=== PATIENT | female | born 1985 | race Caucasian/White ===

== ENCOUNTER 2018-12-05 04:09 | Emergency (ER) | payer BC ==
[~2018-12-05] VITALS: Ht 162.6 cm; Wt 62.1 kg
--- NOTE | 2018-12-05 04:27 | NUR ---
Patient to ER bed 4 for evaluation. Side rails up.
--- NOTE | 2018-12-05 04:28 | NUR ---
SENG Zuñiga at bedside examining patient.
--- NOTE | 2018-12-05 04:30 | NUR ---
Patient arrived from home [id number] and able to verbalize her needs. Complaints of pelvic with pain or an 8/10 with burning upon urination and urgency urination. Has chill but no fever. Denies any chest pain, sob or n/v. Generalized mild aches throughout. Able to ambulate with out assistance. Patient states it might be a UTI and been taking medication at home since yesterday 12/04/18.
[2018-12-05] MEDS ORDERED: NITROFURANTOIN MONOHYD/M-CRYST 100 MG CAPSULE PO ONE (04:45)
--- NOTE | 2018-12-05 04:45 | NUR ---
Patient given written and verbal discharge instructions and verbalizes understanding. ER MD discussed with patient the results and treatment provided. Patient in stable condition. ID arm band removed. Rx of Macrobid given. Patient educated on pain management and to follow up with PMD. Pain Scale 0/10. Opportunity for questions provided and answered. Medication side effect fact sheet provided.
[2018-12-05 04:46] VITALS: BP_SYST 122
== END 2018-12-05 04:45 | disposition home or self-care (01) ==
LOC: SED 04:09
DX: N39.0 Urinary tract infection, site not specified (principal)
CPT/HCPCS: 81025; 99283